=== PATIENT | female | born 1945 | race Caucasian/White ===

== ENCOUNTER → 2018-03-27 10:33 | Outpatient (CLI) | payer MEDICARE, OTHER, SELFPAY ==
--- NOTE | 2018-03-27 | DI.MG.S_ITS ---
BILATERAL DIGITAL SCREENING MAMMOGRAM 3D/2D WITH CAD: 03/27/2018 CLINICAL: Routine screening. Family history of breast cancer. Comparison is made to exams dated: 01/28/2017 mammogram, 01/02/2016 mammogram, and 01/08/2015 mammogram - [facility]. The tissue of both breasts is heterogeneously dense. This may lower the sensitivity of mammography. Current study was also evaluated with a Computer Aided Detection (CAD) system. No significant masses, calcifications, or other findings are seen in either breast. There has been no significant interval change. IMPRESSION: NEGATIVE There is no mammographic evidence of malignancy. A 1 year screening mammogram is recommended. This exam was interpreted at Station ID: [id number]. NOTE: For mammograms, a report in lay terms will be sent to the patient. Approximately 15% of breast malignancies will not be visualized mammographically. In the management of a palpable breast mass, a negative mammogram must not discourage biopsy of a clinically suspicious lesion. Electronically Signed By: Danny chung/david:03/27/2018 15:16:05 letter sent: Normal Exam ACR BI-RADS Category 1: Negative 3341F
== END ==
PROVIDERS: Visit Provider Family Medicine
DX: Z12.31 Encounter for screening mammogram for malignant neoplasm of breast (principal); Z80.3 Family history of malignant neoplasm of breast
CPT/HCPCS: 77063; 77067

== ENCOUNTER → 2019-03-28 08:00 | Outpatient (CLI) | payer MEDICARE, OTHER, SELFPAY ==
--- NOTE | 2019-03-28 | DI.MG.S_ITS ---
BILATERAL DIGITAL SCREENING MAMMOGRAM 3D/2D WITH CAD: 03/28/2019 CLINICAL: Routine screening. Family history of breast cancer. Comparison is made to exams dated: 03/27/2018 mammogram - [facility], 01/28/2017 mammogram, and 01/02/2016 mammogram - [facility]. The tissue of both breasts is heterogeneously dense. This may lower the sensitivity of mammography. Current study was also evaluated with a Computer Aided Detection (CAD) system. No significant masses, calcifications, or other findings are seen in either breast. There has been no significant interval change. IMPRESSION: NEGATIVE There is no mammographic evidence of malignancy. A 1 year screening mammogram is recommended. This exam was interpreted at Station ID: [id number]. NOTE: For mammograms, a report in lay terms will be sent to the patient. Approximately 15% of breast malignancies will not be visualized mammographically. In the management of a palpable breast mass, a negative mammogram must not discourage biopsy of a clinically suspicious lesion. Electronically Signed By: Delbert ding/david:03/28/2019 17:18:47 letter sent: Normal Exam ACR BI-RADS Category 1: Negative 3341F
== END ==
PROVIDERS: PCP Family Medicine; Visit Provider Family Medicine
DX: Z12.31 Encounter for screening mammogram for malignant neoplasm of breast (principal); Z80.3 Family history of malignant neoplasm of breast
CPT/HCPCS: 77063; 77067

== ENCOUNTER 2019-10-02 12:12 | Emergency (ER) | payer MEDICARE, OTHER, SELFPAY ==
[2019-10-02 12:28] VITALS: BP 133/79; PULSE 64; RESP 17; TEMP 36.7; O2SAT 99; BMI 29.2
--- NOTE | 2019-10-02 12:30 | DI.RAD.S_ITS ---
PROCEDURE: XR CHEST 1V INDICATIONS: chest pain TECHNIQUE: One view of the chest was acquired. COMPARISON: None. FINDINGS: Surgical changes and devices: None. Lungs and pleura: Lungs are clear. No pleural effusions or pneumothorax. Mediastinum: Mediastinal contours appear normal. Heart size is enlarged. Bones and chest wall: No suspicious bony lesions. Overlying soft tissues appear unremarkable. IMPRESSION: No acute cardiopulmonary pathology. Dictated by: Jorden Jack M.D. on 10/02/2019 at 13:42 Approved by: Jorden Jack M.D. on 10/02/2019 at 13:43
[2019-10-02 12:39] LABS: Add Manual Diff / Slide Review NO; Basophils Absolute Auto 100 /uL (0-100); Basophils Percent Auto 0.9 % (0-2); Eosinophils Absolute Auto 100 /uL (0-450); Eosinophils Percent Auto 2.2 % (2-4); Hematocrit 40.9 % (36-46); Hemoglobin 13.9 g/dL (12.0-16.0); Lymphocytes Absolute Auto 2100 /uL (1100-4500); Lymphocytes Percent Auto 34.8 % (25-40); Mean Corpuscular HGB Conc 34.1 % (30-36); Mean Corpuscular Hemoglobin 31.6 PG (26-34); Mean Corpuscular Volume 92.9 fL (80-100); Monocytes Absolute Auto 500 /uL (0-900); Monocytes Percent Auto 7.9 % (3-14); Neutrophils Absolute Auto 3300 /uL (1500-7000); Neutrophils Percent Auto 54.2 % (50-75); Platelet Count 236 X10^3/uL (150-400); Red Cell Distribution Width 13.5 % (11.6-14.8); White Blood Cell Count 6.1 X10^3/uL (4.5-11.0)
[2019-10-02 12:44] LABS: PTT Partial Thromboplastin Tim 29 SECONDS (26.4-36.2)
[2019-10-02 12:46] LABS: Alanine Aminotransferase 21 IU/L (<35); Albumin 4.6 g/dL (3.5-5.0); Albumin Globulin Ratio 1.6 (1.0-2.8); Alkaline Phosphatase 70 U/L (38-126); Aspartate Aminotransferase 25 IU/L (14-36); BUN Creatinine Ratio 25.7 (6-22); Bilirubin Total 0.5 mg/dL (0.2-1.3); Blood Urea Nitrogen 18 mg/dL (7-17); Calcium 10.7 mg/dL (8.4-10.2); Carbon Dioxide 27 mmol/L (22-32); Chloride 104 mmol/L (98-107); Creatine Kinase 80 U/L (30-135); Estimated Glomerular Filt Rate > 60.0 mL/min (>60); Globulin 2.9 g/dL (1.7-4.1); Glucose 104 mg/dL (80-110); HEMOLYSIS < 15 (0-50); Lipase 151 U/L (23-300); Potassium 4.2 mmol/L (3.4-5.1); Sodium 139 mmol/L (137-145); Total Protein 7.5 g/dL (6.3-8.2)
--- NOTE | 2019-10-02 12:47 | ED_ITS ---
HPI - Chest Pain General Chief Complaint: Chest Pain Stated Complaint: ELECTRICAL SHOCKS RT ARM Time Seen by Provider: 10/02/19 12:20 Source: patient Mode of arrival: Ambulatory Limitations: no limitations History of Present Illness HPI narrative: Patient is a 73-year-old female who presents with chest discomfort ongoing for the last year. She states that she has had constant chest heaviness for the last year and fact she has appointment with Cardiology in 1 week. She says 2 nights ago she had electrical shooting in the center of her chest that radiated down her arms it lasted for about 30 minutes she took an aspirin went back to sleep. She decided today that she should probably be checked out. She is able to work in the [employer] without any difficulty she has no shortness of breath her chest discomfort is the same as it has been for the last year. MD complaint: chest pain Duration: constant Pain location: substernal Severity: mild Quality: aching Pain radiation: none Relieving factors: nothing Exacerbating factors: nothing Related Data Allergies Allergy/AdvReac Type Severity Reaction Status Date / Time No Known Drug Allergies Allergy Verified 10/02/19 12:28 Review of Systems Review of Systems Narrative: GENERAL: Denies chills, fatigue, malaise, fever, sweats, travel HEENT: Denies sinus pain, ear pain, sore throat, difficulty swallowing, neck pa in RESPIRATORY: Denies dyspnea, cough, wheezing, hemoptysis, sputum. CARDIOVASCULAR: See HPI GASTROINTESTINAL: Denies nausea, vomiting, abdominal pain, diarrhea, constipation, melena. : Denies dysuria, frequency, incontinence, hematuria, urinary retention, flank pain. MUSCULOSKELETAL: Denies weakness, joint pain, or bony pain SKIN: No rash, no erythema, no pruritus NEUROLOGIC: Denies weakness, dizziness, headache, numbness, change in speech, confusion PSYCHIATRIC: No concerning psychosocial issues. 12 point review of systems is negative except for those stated above and HPI Patient History Medical History Parathyroid abnormality (Acute) Social History Smoking Status: Never smoker Smoking Status: Never smoker Substance Use Type: does not use Exam Initial Vital Signs Initial Vital Signs: Vital Signs Temperature 98.1 F 10/02/19 12:28 Pulse Rate 64 10/02/19 12:28 Respiratory Rate 17 10/02/19 12:28 Blood Pressure 133/79 10/02/19 12:28 Pulse Oximetry 99 10/02/19 12:28 GENERAL: Well-appearing, well-nourished and in no acute distress. HEENT: Head atraumatic,EOMI, pupils reactive, face symmetric, moist mucous membranes CARDIOVASCULAR: Regular rate and rhythm without murmurs, rubs or gallops. RESPIRATORY: Breath sounds equal bilaterally, no wheezes rales or rhonchi. ABDOMEN: Soft, nontender. Normoactive bowel sounds all 4 quadrants. No guarding or rebound. EXTREMITIES: Normal range of motion, no clubbing or edema. Neurovascularly int act NEUROLOGICAL: Alert and oriented x4.Normal gait and speech. Cranial nerves II through XII grossly intact. SKIN: Warm, dry, no laceration, no petechiae, no rashes or lesions. Scores HEART Score Heart Score history: Slightly Suspicious Heart Score EKG: Normal Heart Score Age: > or = 65 years old Heart Score risk factors: No known risk factors Heart Score troponin: < or = to normal limit Heart Score Total: 2 Course Orders Ordered: ED Orders 10/02/19 12:25 Complete Blood Count AUTO DIFF Stat Comprehensive Metabolic Panel Stat Lipase Stat Partial Thromboplastin Time Stat Prothrombin Time INR Stat Troponin & CK Cardiac Panel Stat EKG-12 Lead Routine 10/02/19 12:30 XR chest 1V Stat Vital Signs Vital signs: Vital Signs - 8 hr 10/02/19 12:28 10/02/19 13:43 Temperature 98.1 F Pulse Rate 64 61 Respiratory Rate 17 15 Blood Pressure 133/79 Blood Pressure [Left Arm] 117/70 Pulse Oximetry 99 99 MDM - Chest Pain Lab Data Attestation: I reviewed the patient's lab results. Result diagrams: 10/02/19 12:25 10/02/19 12:25 Labs: Lab Results 10/02/19 10/02/19 10/02/19 Range/Units 12:25 12:25 12:25 WBC 6.1 (4.5-11.0) X10^3/uL RBC 4.40 (4.0-5.2) X10^6/uL Hgb 13.9 (12.0-16.0) g/dL Hct 40.9 (36-46) % MCV 92.9 (80-100) fL MCH 31.6 (26-34) PG MCHC 34.1 (30-36) % RDW 13.5 (11.6-14.8) % Plt Count 236 (150-400) X10^3/uL Neut % (Auto) 54.2 (50-75) % Lymph % (Auto) 34.8 (25-40) % [place] % (Auto) 7.9 (3-14) % Eos % (Auto) 2.2 (2-4) % Baso % (Auto) 0.9 (0-2) % Neut # (Auto) 3300 (4671-4812) /uL Lymph # (Auto) 2100 (0741-6246) /uL [place] # (Auto) 500 (0-900) /uL Eos # (Auto) 100 (0-450) /uL Baso # (Auto) 100 (0-100) /uL PT 11.0 (10.1-12.7) SECONDS INR 1.0 (0.9-1.3) APTT 29 (26.4-36.2) SECONDS Sodium 139 (137-145) mmol/L Potassium 4.2 (3.4-5.1) mmol/L Chloride 104 (98-107) mmol/L Carbon Dioxide 27 (22-32) mmol/L BUN 18 H (7-17) mg/dL Creatinine 0.70 (0.52-1.04) mg/dL Estimated GFR > 60.0 (>60) mL/min BUN/Creatinine Ratio 25.7 H (6-22) Glucose 104 (80-110) mg/dL Calcium 10.7 H (8.4-10.2) mg/dL Total Bilirubin 0.5 (0.2-1.3) mg/dL AST 25 (14-36) IU/L ALT 21 (<35) IU/L Alkaline Phosphatase 70 (38-126) U/L Total Creatine Kinase 80 (30-135) U/L CK-MB (CK-2) TNP CK-MB (CK-2) Rel Index TNP Troponin I < 0.012 (0.01-0.034) ng/mL Total Protein 7.5 (6.3-8.2) g/dL Albumin 4.6 (3.5-5.0) g/dL Globulin 2.9 (1.7-4.1) g/dL Albumin/Globulin Ratio 1.6 (1.0-2.8) Lipase 151 (23-300) U/L ECG Data Attestation: I personally reviewed and interpreted this ECG as follows: Prior ECG tracings: not available for review Interpretation: Normal sinus rhythm rate 69 p.r. interval 148 his QRS 97 QTC 420 Q-wave noted in lead [address] elevation depression or T-wave inversions no priors to compare MDM Narrative Medical decision making narrative: Patient has had chest discomfort ongoing for a year she had an exacerbation 2 days ago no longer having the exacerbation. Her chest discomfort is not any worse today than it has been for the last 1 year pain Discharge Plan Departure Patient Disposition: Home Clinical Impression: Atypical chest pain Discharge Date/Time: 10/02/19 13:43 Instructions: DI for Atypical Chest Pain Activity Restrictions/Additional Instructions: *You have been diagnosed with atypical chest pain *What to do: You may require further testing such as stress test please discuss this with the cota to see them next week and her primary care provider *Continue to take medications as directed *Follow up with your primary care provider in 2-3 days *Return to ER if you should have increasing chest, shortness of breath weakness or any new, worsening or concerning symptoms Referrals: Melyssa Molina MD [Primary Care Provider] - Seven Goddard MD [Physician] -
[2019-10-02 12:57] LABS: Troponin I < 0.012 ng/mL (0.01-0.034)
[2019-10-02 13:43] VITALS: BP 117/70; PULSE 61; RESP 15; O2SAT 99
== END 2019-10-02 13:43 | disposition home or self-care (01) ==
PROVIDERS: Emergency Provider Emergency Medicine; PCP Family Medicine
DX: R07.89 Other chest pain (principal)
CPT/HCPCS: 36415; 71045; 80053; 82550; 83690; 84484; 85025; 85610; 85730; 93005; 93010; 99282; 99285

== ENCOUNTER → 2019-11-05 08:48 | Outpatient (CLI) | payer MEDICARE, OTHER, SELFPAY ==
--- NOTE | 2019-11-05 16:02 | PM.TREADMILL ---
Cardiac Stress Test Report Referral & Results Date Patient Seen: 11/05/19 Time Patient Seen: 11:30 Rest ECG: SINUS RHYTHM Procedure Note: PATIENT TOLERATED EXERCISE WELL WITHOUT ANGINAL SYMPTOMS. Impression: 1. STANDARD XUAN PROTOCOL; 8:10, 10.1 METS. 2. EXCELLENT EXERCISE CAPACITY, MONIKA -47%. 3. NORMAL HEMODYNAMIC RESPONSE TO EXERCISE . 4. NO CHEST PAIN OR ANGINAL SYMPTOMS. 5. APPROX. [address] DEPRESSION V5 AND V6. GREATER THAN 1 MM STD IN LEAD III. FREQUENT PACS AND MULTIFOCAL PVCS INCLUDING SOME COUPLETS, TIRGEMINY AND BIGEMINY. Please note: Actual ECG tracings can be found in the PACS system.
--- NOTE | 2019-11-13 14:19 | DI.NM.S_ITS ---
DATE OF SERVICE: PROCEDURE: Exercise perfusion study. INDICATION: Angina, palpitations, hypertension, hyperlipidemia. RADIOPHARMACEUTICAL: 27.1 mCi technetium-99m Myoview IV was injected at stress and 27.3 mCi technetium-99m Myoview IV was injected at rest. FINDINGS: CARDIAC STRESS: The patient underwent exercise perfusion study under the supervision of attending staff. She walked on Issac protocol for 8 minutes 10 seconds, achieved 114 percent of target heart rate, normal blood pressure response. Functional aerobic impairment minus 47 percent. The patient achieved 10.1 METS of workload. No anginal symptoms. Baseline EKG revealed sinus rhythm with nonspecific concave ST flattening and depression in the inferior and lateral leads. During stress, no convincing significant inducible ischemic changes. Intermittent PACs. In recovery, intermittent PVCs were seen, as well. No sustained ventricular tachycardia or supraventricular tachycardia. RAW DATA: Breast shadow was seen. GATED STUDY: Resting LV ejection fraction 81 and stress LV ejection fraction 86 percent. Resting end-diastolic velocity 81 mL. No transient ischemic dilatation. TID ratio 0.90, which is within normal limits. Lung-heart ratio 0.28, which is within normal limits. MYOCARDIAL PERFUSION: Stress supine and resting supine images revealed a small size, mildly decreased perfusion of apex, which got resolved during prone images, suggestive of breast tissue attenuation artifact. No convincing ischemia or infarction. CONCLUSION: 1. I would call this study a normal myocardial perfusion study with evidence of breast tissue attenuation artifact, which got resolved during prone images. 2. Good exercise tolerance. 3. Preserved LV function. 4. No anginal symptoms during exercise. 5. Intermittent PACs during stress and isolated PVCs during recovery seen. 6. No sustained ventricular tachycardia or supraventricular tachycardia. 7. Overall, this a low risk myocardial perfusion scan. Rah Ramirez - LINDA/bonita/janine doc#: [id number]/job#: [id number] dd: 11/06/2019 13:18:00 dt: 11/06/2019 13:30:00 DICTATING MD/COPIES TO: Seven Goddard MD COPIES MNE: WILLIE;
== END ==
LOC: ECHO 10:38 → NUCM 11-23 11:37
PROVIDERS: Family Provider Physician Assistant; PCP Physician Assistant; Visit Provider Internal Medicine Cardiovascular Disease
DX: I20.9 Angina pectoris, unspecified (principal); I49.3 Ventricular premature depolarization; R00.2 Palpitations
CPT/HCPCS: 78452; 93016; 93017; 93018; A9502

== ENCOUNTER → 2019-11-06 09:00 | Outpatient (CLI) | payer MEDICARE, OTHER, SELFPAY ==
--- NOTE | 2019-11-06 | DI.ECHO.S_ITS ---
[place] [facility]---------+ [facility] +---------+ : : [address] [place] : : : : [id number] : : : : Phone: [phone]+ Echocardiogram Report + + :Name: HIEU MOSLEY Study Date: 11/06/2019 Height: 61 in : :[facility] Weight: 155 lb : : Gender: Female BSA: 1.7 m2 : :: 1945 Age: 73 yrs BP: 138/76 mmHg: :Reason For Study: Angina : :Ordering Physician: Vasiliy : :Howard Doherty Performed By: Jameel Hickey : :Referring: VASILIY DOHERTY : + + Interpretation Summary The left ventricle is normal in size. The left ventricle is hyperdynamic. The ejection fraction is estimated to be 70-75%. There is no echo evidence for significant left ventricular outflow tract obstruction. The right ventricle is normal in size and function. No significant valvular pathology seen. Procedure: A two-dimensional transthoracic echocardiogram with color flow and Doppler was performed. The study quality was technically adequate. There is no prior echocardiogram noted for this patient. The patient was in normal sinus rhythm during the exam. Left Ventricle: The left ventricle is normal in size. Proximal septal thickening is noted. There is no echo evidence for significant left ventricular outflow tract obstruction. The ejection fraction is estimated to be 70-75%. The left ventricle is hyperdynamic. There are no obvious focal wall motion abnormalities noted but poor endocardial definition reduces the sensitivity for the detection of such. Diastolic parameters suggest probable normal left ventricular diastolic function and normal filling pressures. Right Ventricle: The right ventricle is normal in size and function. Atria: The left atrium is severely dilated. Right atrial size is normal. The interatrial septum is intact with no evidence for an atrial septal defect. Mitral Valve: The mitral valve leaflets are slightly calcified. The mitral valve chordae are thickened and/or calcified. There is trace mitral regurgitation. Aortic Valve: The aortic valve is trileaflet. The aortic valve opens well. There is no aortic valve stenosis. No aortic regurgitation is present. Tricuspid Valve: The tricuspid valve is normal in structure and function. There is trace tricuspid regurgitation. The right ventricular systolic pressure is estimated to be at least 31 mmHg based on an estimated right atrial pressure of 8 mm Hg. Pulmonic Valve: The pulmonic valve is normal in structure and function. There is trace pulmonic regurgitation. Great Vessels: The aortic root is normal size. The ascending aorta is at the upper limits of normal in size. The pulmonary artery is normal size. The IVC is dilated (diameter is greater than 2.1 cm) yet it collapses greater than 50% with a sniff. This suggests a right atrial pressure of 8 mm Hg. Pericardium/ Pleura There is no pericardial effusion. There is no pleural effusion. MMode/2D Measurements & Calculations LVIDd: 3.6 cm LVOT diam: 2.1 cm LVIDs: 2.4 cm Ao root diam: 3.4 cm FS: 33.2 % asc Aorta Diam: 3.7 cm IVSd: 1.5 cm LVPWd: 0.94 cm LV la. diameter/BSA (cm/m^2): 2.1 LV sys. diameter/BSA (cm/m^2): 1.4 LA A2 area: 25.0 cm2 RA long axis: 5.9 cm LA A4 area: 29.3 cm2 RA area: 15.8 cm2 LA length (vol): 6.9 cm RA vol: 36.3 ml LA vol: 90.1 ml RA : 21.4 ml/m2 LA vol index: 53.1 ml/m2 TAPSE: 3.1 cm Doppler Measurements & Calculations Ao V2 max: 122.6 cm/sec LVOT Max Dwight: 103.7 cm/sec Ao V2 mean: 89.2 cm/sec LV V1 max P.3 mmHg Ao max P.0 mmHg LV V1 VTI: 25.7 cm Ao mean P.5 mmHg JOSY(I,D): 3.4 cm2 Ao V2 VTI: 25.7 cm JOSY(V,D): 2.9 cm2 sev ratio: 1.00 JOSY indexed to BSA (cm^2/m^2): 2.0 MV E max dwight: 76.4 cm/sec TR max dwight: 238.4 cm/sec MV A max dwight: 55.3 cm/sec TR max P.7 mmHg MV E/A: 1.4 PA V2 max: 69.5 cm/sec Med Peak E' Dwight: 7.3 cm/sec PA V2 mean: 51.9 cm/sec E/E' med: 10.4 PA mean P.2 mmHg Lat Peak E' Dwight: 10.6 cm/sec PA Accel Time: 0.14 sec E/E' lat: 7.2 E/e' average: 8.8 MV dec time: 0.34 sec SV(LVOT): 87.3 ml Reading Physician:02:05 PM
== END ==
PROVIDERS: Family Provider Physician Assistant; PCP Physician Assistant; Visit Provider Internal Medicine Cardiovascular Disease
DX: I20.9 Angina pectoris, unspecified (principal)
CPT/HCPCS: 93306

== ENCOUNTER → 2020-07-02 11:16 | Outpatient (CLI) | payer MEDICARE, OTHER, SELFPAY ==
--- NOTE | 2020-07-02 11:36 | DI.MG.S_ITS ---
Patient Name: HIEU MOSLEY date: 1945 Sex: F Attending Physician: Arabella Indications: Date: 07/02/2020 11:29 At the request of: MILKA ANDERSON Procedure: MM screening mammo BI BILATERAL DIGITAL SCREENING MAMMOGRAM 3D/2D WITH CAD: 07/02/2020 CLINICAL: Routine screening. Family history of breast cancer. Comparison is made to exams dated: 03/28/2019 mammogram, 03/27/2018 mammogram - [facility], and 01/28/2017 mammogram - [facility]. The tissue of both breasts is heterogeneously dense. This may lower the sensitivity of mammography. Current study was also evaluated with a Computer Aided Detection (CAD) system. No significant masses, calcifications, or other findings are seen in either breast. There has been no significant interval change. IMPRESSION: NEGATIVE There is no mammographic evidence of malignancy. A 1 year screening mammogram is recommended. This exam was interpreted at Station ID: [id number]. NOTE: For mammograms, a report in lay terms will be sent to the patient. Approximately 15% of breast malignancies will not be visualized mammographically. In the management of a palpable breast mass, a negative mammogram must not discourage biopsy of a clinically suspicious lesion. Electronically Signed By: Kelvin Neff M.D., jr/david:07/02/2020 13:23:19 letter sent: Normal Exam ACR BI-RADS Category 1: Negative 3341F
== END ==
PROVIDERS: Family Provider Physician Assistant; PCP Physician Assistant; Referring Provider Physician Assistant; Visit Provider Physician Assistant
DX: Z12.31 Encounter for screening mammogram for malignant neoplasm of breast (principal); Z80.3 Family history of malignant neoplasm of breast
CPT/HCPCS: 77063; 77067

== ENCOUNTER → 2021-07-06 10:14 | Outpatient (CLI) | payer MEDICARE, OTHER, SELFPAY ==
--- NOTE | 2021-07-06 | DI.MG.S_ITS ---
BILATERAL DIGITAL SCREENING MAMMOGRAM 3D/2D WITH CAD: 07/06/2021 CLINICAL: Routine screening. Family history of breast cancer. Comparison is made to exams dated: 07/02/2020 mammogram, 03/28/2019 mammogram, and 03/28/2019 mammogram - [facility]. The tissue of both breasts is heterogeneously dense. This may lower the sensitivity of mammography. Current study was also evaluated with a Computer Aided Detection (CAD) system. No significant masses, calcifications, or other findings are seen in either breast. There has been no significant interval change. IMPRESSION: NEGATIVE There is no mammographic evidence of malignancy. A 1 year screening mammogram is recommended. This exam was interpreted at Station ID: [id number]. NOTE: For mammograms, a report in lay terms will be sent to the patient. Approximately 15% of breast malignancies will not be visualized mammographically. In the management of a palpable breast mass, a negative mammogram must not discourage biopsy of a clinically suspicious lesion. Electronically Signed By: Silver bird/david:07/06/2021 12:41:52 letter sent: Normal Exam ACR BI-RADS Category 1: Negative 3341F
== END ==
PROVIDERS: Family Provider Physician Assistant; PCP Internal Medicine; Referring Provider Internal Medicine; Visit Provider Internal Medicine
DX: Z12.31 Encounter for screening mammogram for malignant neoplasm of breast (principal); Z80.3 Family history of malignant neoplasm of breast
CPT/HCPCS: 77063; 77067

== ENCOUNTER 2023-06-21 13:19 | Observation (INO) | payer MEDICARE, OTHER, SELFPAY ==
[2023-06-21] VITALS (19 sets, daily range): BP systolic 123–171; BP diastolic 68–90; PULSE 57–88; RESP 14–25; TEMP 36.8–37.1; O2SAT 92–99; BMI 29.8
--- NOTE | 2023-06-21 13:36 | DI.RAD.S_ITS ---
PROCEDURE: XR CHEST 1V INDICATIONS: Chest pain TECHNIQUE: One view of the chest was acquired. COMPARISON: [facility], CR, XR CHEST 1V, 10/02/2019, 12:40. FINDINGS: Surgical changes and devices: None. Lungs and pleura: Mild interstitial prominence. No focal consolidation. Mild left hemidiaphragm elevation and left basilar atelectasis. No pleural effusions or pneumothorax. Mediastinum: Mediastinal contours appear normal. Heart size is mildly enlarged. Bones and chest wall: No suspicious bony lesions. Overlying soft tissues appear unremarkable. IMPRESSION: 1. Mild cardiomegaly. There is mild interstitial prominence but no confluent pulmonary edema. 2. Mild left hemidiaphragm elevation and left basilar atelectasis. Dictated by: Tianna Cardoso M.D. on 06/21/2023 at 15:10 Approved by: Tianna Cardoso M.D. on 06/21/2023 at 15:11
--- NOTE | 2023-06-21 14:11 | ED_ITS ---
HPI - Chest Pain General Chief Complaint: Chest Pain Stated Complaint: Sent from [facility] pain Time Seen by Provider: 06/21/23 13:36 Source: patient Mode of arrival: Ambulatory Limitations: no limitations History of Present Illness HPI narrative: 77-year-old female. Has a history of SVT and frequent PVCs. Is on flecainide. Has never had a heart attack. Had a stress test in 2019 an echocardiogram approximately 1 year later that were unremarkable. She is followed by cardiology at [facility]. She states that she woke up at about 0200 hours in the morning with substernal chest pressure. It did radiate to both sides of her chest and up into her jaw. States it lasted approximately 30 minutes and only w ent away when she fell back to sleep. She woke up this morning not having any symptoms. At the time of the symptoms she was not having palpitations or shortness of breath. No lightheadedness. She went to an outside walk-in clinic who advised she come to the emergency department for evaluation. Related Data Allergies Allergy/AdvReac Type Severity Reaction Status Date / Time No Known Drug Allergies Allergy Verified 10/02/19 12:28 Review of Systems Constitutional Constitutional: Reports system reviewed and no additional complaints, except as documented Cardiovascular Cardiovascular: Reports system reviewed and no additional complaints, except as documented Respiratory Respiratory: Reports system reviewed and no additional complaints, except as documented Gastrointestinal Gastrointestinal: Reports system reviewed and no additional complaints, except as documented Genitourinary Genitourinary: Reports system reviewed and no additional complaints, except as documented Integumentary/Breasts Skin/Breast: Reports system reviewed and no additional complaints, except as documented Neurologic Neurologic: Reports system reviewed and no additional complaints, except as documented Hematologic/Lymphatic On Anticoagulants: No Patient History Medical History (Updated 06/21/23 @ 16:44 by Mckinley Berg DO) Parathyroid abnormality Social History Smoking Status: Never smoker Smoking Status: Never smoker Substance Use Type: does not use Exam Initial Vital Signs Initial Vital Signs: Vital Signs Temperature 98.7 F 06/21/23 13:37 Pulse Rate 66 06/21/23 13:37 Respiratory Rate 20 06/21/23 13:37 Blood Pressure 152/79 H 06/21/23 13:37 Pulse Oximetry 97 06/21/23 13:37 Oxygen Delivery Method Room Air 06/21/23 13:37 Const General: cooperative, comfortable and No ill appearing HENMT Head: normal to inspection and normocephalic Resp Effort & Inspection: normal respiratory effort Auscultation: clear to auscultation bilaterally Cardio Rate: regular rate Rhythm: regular rhythm GI Inspection: normal to inspection and non-distended Skin General: no rashes or lesions noted Neuro General: patient alert, patient awake, patient oriented x3 and moves all extremities Extrem General: normal to inspection and No edema Course Orders Ordered: ED Orders 06/21/23 13:36 XR chest 1V Stat 06/21/23 13:37 EKG-12 Lead Stat 06/21/23 14:04 Complete Blood Count AUTO DIFF Stat Comprehensive Metabolic Panel Stat Lipase Stat Magnesium Stat Troponin & CK Cardiac Panel Stat 06/21/23 16:03 Troponin & CK Cardiac Panel Stat Vital Signs Vital signs: Vital Signs - 8 hr 06/21/23 13:37 06/21/23 13:51 06/21/23 14:00 Temperature 98.7 F Pulse Rate 66 61 67 Respiratory Rate 20 14 24 Blood Pressure 152/79 H Pulse Oximetry 97 99 98 Oxygen Delivery Method Room Air 06/21/23 14:08 06/21/23 14:08 06/21/23 14:30 Temperature Pulse Rate 66 Respiratory Rate 16 Blood Pressure 146/76 H 131/68 Pulse Oximetry 99 Oxygen Delivery Method 06/21/23 14:30 06/21/23 15:00 06/21/23 15:00 Temperature Pulse Rate 58 L 57 L Respiratory Rate 14 18 Blood Pressure 132/73 Pulse Oximetry 97 96 Oxygen Delivery Method 06/21/23 15:30 06/21/23 15:30 06/21/23 16:00 Temperature Pulse Rate 68 Respiratory Rate 18 Blood Pressure 127/80 135/74 Pulse Oximetry 98 Oxygen Delivery Method 06/21/23 16:00 06/21/23 16:30 06/21/23 16:30 Temperature Pulse Rate 77 77 Respiratory Rate 21 23 Blood Pressure 148/81 H Pulse Oximetry 92 97 Oxygen Delivery Method 06/21/23 16:59 06/21/23 17:00 Temperature Pulse Rate 73 Respiratory Rate 20 Blood Pressure 141/86 H Pulse Oximetry 92 Oxygen Delivery Method MDM - Chest Pain Lab Data Attestation: I reviewed the patient's lab results. 06/21/23 14:04 08/29/23 14:04 Labs: Lab Results 06/21/23 06/21/23 06/21/23 Range/Units 14:04 14:04 16:03 WBC 6.4 (4.5-11.0) X10^3/uL RBC 4.23 (4.0-5.2) X10^6/uL Hgb 13.3 (12.0-16.0) g/dL Hct 39.4 (36-46) % MCV 93.2 (80-100) fL MCH 31.5 (26-34) PG MCHC 33.8 (30-36) % RDW 14.0 (11.6-14.8) % Plt Count 223 (150-400) X10^3/uL Neut % (Auto) 59.9 (50-75) % Lymph % (Auto) 31.0 (25-40) % [place] % (Auto) 6.8 (3-14) % Eos % (Auto) 1.7 L (2-4) % Baso % (Auto) 0.6 (0-2) % Neut # (Auto) 3900 (2163-6926) /uL Lymph # (Auto) 2000 (2224-0871) /uL [place] # (Auto) 400 (0-900) /uL Eos # (Auto) 100 (0-450) /uL Baso # (Auto) 0 (0-100) /uL Sodium 138 (137-145) mmol/L Potassium 4.1 (3.4-5.1) mmol/L Chloride 108 H (98-107) mmol/L Carbon Dioxide 26 (22-32) mmol/L BUN 16 (7-17) mg/dL Creatinine 0.80 (0.52-1.04) mg/dL Estimated GFR > 60 (>60) mL/min BUN/Creatinine Ratio 20.0 (6-22) Glucose 98 (80-110) mg/dL Calcium 10.2 (8.4-10.2) mg/dL Magnesium 2.3 (1.6-2.3) mg/dL Total Bilirubin 0.6 (0.2-1.3) mg/dL AST 24 (14-36) IU/L ALT 23 (<35) IU/L Alkaline Phosphatase 67 (38-126) U/L Total Creatine Kinase 97 92 (30-135) U/L Troponin I < 0.012 < 0.012 (0.01-0.034) ng/mL Total Protein 7.0 (6.3-8.2) g/dL Albumin 4.2 (3.5-5.0) g/dL Globulin 2.8 (1.7-4.1) g/dL Albumin/Globulin Ratio 1.5 (1.0-2.8) Lipase 125 (23-300) U/L Imaging Data Chest x-ray: Radiologist's Impression: PROCEDURE:? XR CHEST 1V ? INDICATIONS:? Chest pain ? TECHNIQUE:? One view of the chest was acquired.? ? COMPARISON:? [facility], CR, XR CHEST 1V, 10/02/2019, 12:40. ? FINDINGS:? ? Surgical changes and devices:? None.? ? Lungs and pleura:? Mild interstitial prominence.? No focal consolidation.? Mild left hemidiaphragm elevation and left basilar atelectasis.? No pleural effusions or pneumothorax.? ? Mediastinum:? Mediastinal contours appear normal.? Heart size is mildly enlarged.? ? Bones and chest wall:? No suspicious bony lesions.? Overlying soft tissues appear unremarkable.? ? IMPRESSION:? ? 1. Mild cardiomegaly.? There is mild interstitial prominence but no confluent pulmonary edema. ? 2. Mild left hemidiaphragm elevation and left basilar atelectasis. ECG Data Attestation: I personally reviewed and interpreted this ECG as follows: Interpretation: Sinus bradycardia Ventricular rate of 50 Frequent PVCs Normal QRS Normal QTC No ST T wave changes MDM Narrative Medical decision making narrative: Patient is asymptomatic. Troponins negative x2. Has not had symptoms till she fell asleep a little after 0200 hours this morning. Her last workup was several years ago. The provider at the walk-in clinic who sent her here talked with her Cardiology group who recommended she be admitted for further risk stratification testing. I did discuss the case with Dr. Palomino who is the hospitalist on-call who will admit for further evaluation and treatment. Discussed the need for admission with the patient. She expressed understanding and agreement as well. Discharge Plan Departure Patient Disposition: Admitted as Observation Clinical Impression: Chest pain Admit Date/Time: 06/21/23 17:10 Admit Provider: Dustin Palomino
[2023-06-21 14:15] LABS: Add Manual Diff / Slide Review NO; Basophils Absolute Auto 0 /uL (0-100); Basophils Percent Auto 0.6 % (0-2); Eosinophils Absolute Auto 100 /uL (0-450); Eosinophils Percent Auto 1.7 % (2-4); Hematocrit 39.4 % (36-46); Hemoglobin 13.3 g/dL (12.0-16.0); Lymphocytes Absolute Auto 2000 /uL (1100-4500); Mean Corpuscular HGB Conc 33.8 % (30-36); Mean Corpuscular Hemoglobin 31.5 PG (26-34); Mean Corpuscular Volume 93.2 fL (80-100); Monocytes Absolute Auto 400 /uL (0-900); Monocytes Percent Auto 6.8 % (3-14); Neutrophils Absolute Auto 3900 /uL (1500-7000); Neutrophils Percent Auto 59.9 % (50-75); Platelet Count 223 X10^3/uL (150-400); Red Blood Cell Count 4.23 X10^6/uL (4.0-5.2); White Blood Cell Count 6.4 X10^3/uL (4.5-11.0)
[2023-06-21 14:32] LABS: Alanine Aminotransferase 23 IU/L (<35); Albumin 4.2 g/dL (3.5-5.0); Albumin Globulin Ratio 1.5 (1.0-2.8); Alkaline Phosphatase 67 U/L (38-126); Aspartate Aminotransferase 24 IU/L (14-36); Bilirubin Total 0.6 mg/dL (0.2-1.3); Blood Urea Nitrogen 16 mg/dL (7-17); Calcium 10.2 mg/dL (8.4-10.2); Carbon Dioxide 26 mmol/L (22-32); Chloride 108 mmol/L (98-107); Creatine Kinase 97 U/L (30-135); Estimated Glomerular Filt Rate > 60 mL/min (>60); Globulin 2.8 g/dL (1.7-4.1); Glucose 98 mg/dL (80-110); HEMOLYSIS < 15 (0-50); Lipase 125 U/L (23-300); Magnesium 2.3 mg/dL (1.6-2.3); Potassium 4.1 mmol/L (3.4-5.1); Sodium 138 mmol/L (137-145)
[2023-06-21 14:43] LABS: Troponin I < 0.012 ng/mL (0.01-0.034)
[2023-06-21 16:26] LABS: Creatine Kinase 92 U/L (30-135)
[2023-06-21 16:39] LABS: Troponin I < 0.012 ng/mL (0.01-0.034)
--- NOTE | 2023-06-21 17:18 | DI.NM.S_ITS ---
PROCEDURE: NM GELY PERF SPECT REST & STR Rest and exercise myocardial perfusion SPECT with gated imaging and ejection fraction RADIOPHARMACEUTICAL: 10.5 mCi Tc-99m sestamibi IV at rest and 27.5 mCi Tc-99m sestamibi IV at peak exercise. A [id number] was performed. INDICATIONS: Chest pain TECHNIQUE: Radiopharmaceutical was injected at peak stress test, and also at rest. SPECT images were obtained. SPECT myocardial perfusion images were displayed in short axis, horizontal long axis, and vertical long axis views. Gated images were reviewed using [employer] software. COMPARISON: None. CARDIAC STRESS: A standard Issac treadmill exercise tolerance test was performed by the patient under the supervision of an attending staff. The patient exercised for 9 minutes and 01 seconds; 10.1 METS; functional aerobic impairment (MONIKA) is -73%. Hemodynamic data: There is normal blood pressure and heart rate response to exercise stress. Patient achieved 117 of maximum predicted heart rate at peak exercise. Symptoms: Patient denied chest pain during exercise. EKG: Rest ECG sinus rhythm, ST segment depression and T wave inversions leads III and aVF. Exercise ECG sinus tachycardia, worsening of the baseline ST segment depressions in lead III. No ectopy. FINDINGS: Raw data: There is good myocardial labeling by radiotracer. No significant motion artifacts. Gjmu-pd-vyvmb ratio is 0.45 (normal is less than 0.38 for sestamibi tracer, and less than 0.50 for thallium tracer). Left ventricle function: Gated images demonstrate normal left ventricle wall thickening. No segmental wall motion abnormality. No transient ischemic dilation; TID is 0.79 (normal less than 1.3). Left ventricle stress ejection fraction is > 75%; normal values are above 45%. Myocardial perfusion: There is normal distribution of activity in the left and right ventricular myocardium. No fixed or reversible perfusion defects. IMPRESSION: Low risk study. No evidence of exercise-induced ischemia or scar on SPECT imaging Hyperdynamic function. Baseline inferior ST segment abnormality that is exacerbated and exercise is not diagnostic for ischemia. Normal hemodynamic response. Excellent exercise capacity. Dictated by: Holly Jeff D.O. on 06/22/2023 at 17:17 Approved by: Holly Jeff D.O. on 06/22/2023 at 17:21
--- NOTE | 2023-06-21 17:19 | DI.ECHO.S_ITS ---
[facility]---------+ [facility] +---------+ : : [address] : : : : [id number] : : : : Phone: [phone] Echocardiogram Report + + :Name: HIEU MOSLEY Study Date: 06/22/2023 Height: 61 in : :[facility] ReadingLocation: Weight: 158 lb : : Gender: Female BSA: 1.7 m2 : :: 1945 Age: 77 yrs BP: 112/69 mmHg: :Reason For Study: CHEST PAIN : :Ordering Physician: GABRIEL, : :KRISTYN Ambriz Performed By: Lilibeth Barbosa : :Referring: KRISTYN RIOS : + + Interpretation Summary 1) Normal left ventricular thickness, size, wall motion, and systolic function (EF 60-65%). 2) Normal right ventricular size and function. 3) The left atrium is severely dilated. 4) There is mild mitral regurgitation. 5) Compared to the Echo done 11/06/2019, no significant change. Procedure: A two-dimensional transthoracic echocardiogram with color flow and Doppler was performed. The study quality was technically adequate. Comparison is made with the echocardiogram of 11/06/2019. The patient had occasional PVCs during the exam. The patient was in sinus rhythm with heart rates between 53-81 bpm during the exam. Left Ventricle: Proximal septal thickening is noted. The left ventricle is normal in size and wall thickness. The ejection fraction is estimated to be 60-65%. Left ventricular systolic function appears normal without focal wall motion abnormalities. Diastolic parameters suggest a relaxation abnormality of the left ventricle, consistent with probable normal filling pressures. Right Ventricle: The right ventricle is normal in size and function. Atria: The left atrium is severely dilated. The right atrium is borderline dilated. There is no Doppler evidence for an interatrial shunt. Mitral Valve: The mitral valve leaflets appear mildly thickened, but open well. There is mild mitral regurgitation. Aortic Valve: The aortic valve is trileaflet. There is no aortic valve stenosis. No aortic regurgitation is present. Tricuspid Valve: The tricuspid valve is normal in structure and function. There is mild tricuspid regurgitation. The right ventricular systolic pressure is estimated to be at least 30 mmHg based on an estimated right atrial pressure of 3 mm Hg. Pulmonic Valve: The pulmonic valve leaflets are thin and pliable; valve motion is normal. There is trace pulmonic regurgitation. Great Vessels: The aortic root is normal size. The dimensions of the ascending aorta are normal. The IVC is of normal diameter and collapses greater than 50% with a sniff. This suggests a low right atrial pressure of 3 mm Hg. Pericardium/ Pleura There is no pericardial effusion. There is no pleural effusion. MMode/2D Measurements & Calculations LVIDd: 4.7 cm LVOT diam: 2.0 cm LVIDs: 3.0 cm Ao root diam: 3.2 cm FS: 35.6 % asc Aorta Diam: 3.3 cm EPSS: 0.55 cm IVSd: 0.77 cm LVPWd: 0.77 cm LV la. diameter/BSA (cm/m^2): 2.8 LV sys. diameter/BSA (cm/m^2): 1.8 LA A2 area: 33.2 cm2 RA long axis: 5.8 cm LA A4 area: 27.6 cm2 RA area: 19.4 cm2 LA length (vol): 6.5 cm RA vol: 54.6 ml LA vol: 118.8 ml RA : 32.0 ml/m2 LA vol index: 69.5 ml/m2 IVC diam: 1.2 cm RVD1 (basal): 3.6 cm RVD2 (mid): 2.8 cm TAPSE: 1.9 cm Doppler Measurements & Calculations Ao V2 max: 118.1 cm/sec LVOT Max Dwight: 100.3 cm/sec Ao V2 mean: 90.1 cm/sec LV V1 max P.0 mmHg Ao max P.6 mmHg LV V1 VTI: 21.8 cm Ao mean P.4 mmHg JOSY(I,D): 2.3 cm2 Ao V2 VTI: 28.7 cm JOSY(V,D): 2.6 cm2 sev ratio: 0.76 JOSY indexed to BSA (cm^2/m^2): 1.4 MV E max dwight: 76.7 cm/sec TR max dwight: 261.9 cm/sec MV A max dwight: 37.5 cm/sec TR max P.4 mmHg MV E/A: 2.0 PA V2 max: 69.3 cm/sec Med Peak E' Dwight: 7.8 cm/sec PA V2 mean: 52.0 cm/sec E/E' med: 9.8 PA mean P.2 mmHg Lat Peak E' Dwight: 10.5 cm/sec PA pr(Accel): 39.6 mmHg E/E' lat: 7.3 E/e' average: 8.6 MV dec time: 0.30 sec SV(LVOT): 67.2 ml Reading Physician:09:24 AM
--- NOTE | 2023-06-21 17:21 | P.HP_ITS ---
History of Present Illness History of Present Illness Date Patient Seen: 06/21/23 Time Patient Seen: 19:00 Chief complaint: Sent from Vladislav, Chest pain Narrative: Rah Ramirez is a 77-year-old female with SVT on flecainide who presents with substernal chest pain. Patient states she was awakened from sleep at 0300 with sharp chest pressure right in the middle of her chest. Pain lasted for 30 minutes then subsided. She also thinks she felt some fluttering in her chest. Patient follows with cardiology who has wanted her to get a stress test outpatient recently. Patient reports she has also had recent dizziness and loss of balance. Has not had this worked up with her PCP yet. She denies dyspnea, diaphroesis, NV, abd pain or diarrhea. [facility] Medical History (Updated 06/21/23 @ 16:44 by Mckinley Berg DO) Parathyroid abnormality Social History household members: none Smoking Status: Never smoker alcohol intake: current Meds Home Medications and Allergies Home Medications Medication Instructions Recorded Confirmed Type Adult Low Dose Aspirin 81 mg PO DAILY 06/21/23 06/21/23 History atorvastatin 40 mg tablet 20 mg PO DAILY 06/21/23 06/21/23 History cholecalciferol (vitamin D3) 4,000 units PO DAILY 06/21/23 06/21/23 History diltiazem HCl 120 mg 120 mg PO DAILY 06/21/23 06/21/23 History capsule,extended release 24 hr, controlled (DILT-XR) flecainide 50 mg tablet 25 mg PO BID 06/21/23 06/21/23 History levothyroxine 75 mcg tablet 75 mcg PO DAILY 06/21/23 06/21/23 History liothyronine 5 mcg tablet 10 mcg PO DAILY 06/21/23 06/21/23 History losartan 25 mg tablet 25 mg PO ONCE PM 06/21/23 06/21/23 History losartan 50 mg tablet 50 mg PO QAM 06/21/23 06/21/23 History Allergies Allergy/AdvReac Type Severity Reaction Status Date / Time No Known Drug Allergies Allergy Verified 10/02/19 12:28 Review of Systems Review of Systems Narrative: All other systems reviewed with the patient and are negative unless otherwise stated. Exam Vital Signs (past 8 hours): - 06/21/23 13:37 06/21/23 13:51 06/21/23 14:00 Temperature 98.7 F Pulse Rate 66 61 67 Respiratory Rate 20 14 24 Blood Pressure 152/79 H Pulse Oximetry 97 99 98 Oxygen Delivery Method Room Air 06/21/23 14:08 06/21/23 14:08 06/21/23 14:30 Temperature Pulse Rate 66 Respiratory Rate 16 Blood Pressure 146/76 H 131/68 Pulse Oximetry 99 Oxygen Delivery Method 06/21/23 14:30 06/21/23 15:00 06/21/23 15:00 Temperature Pulse Rate 58 L 57 L Respiratory Rate 14 18 Blood Pressure 132/73 Pulse Oximetry 97 96 Oxygen Delivery Method 06/21/23 15:30 06/21/23 15:30 06/21/23 16:00 Temperature Pulse Rate 68 Respiratory Rate 18 Blood Pressure 127/80 135/74 Pulse Oximetry 98 Oxygen Delivery Method 06/21/23 16:00 06/21/23 16:30 06/21/23 16:30 Temperature Pulse Rate 77 77 Respiratory Rate 21 23 Blood Pressure 148/81 H Pulse Oximetry 92 97 Oxygen Delivery Method 06/21/23 16:59 06/21/23 17:00 Temperature Pulse Rate 73 Respiratory Rate 20 Blood Pressure 141/86 H Pulse Oximetry 92 Oxygen Delivery Method Oxygen Delivery Method Room Air Narrative Exam Narrative: GEN: no acute distress HEENT: moist mucous membranes, PERRL NECK: trachea midline, no JVD CV: regular rate and rhythm, no murmurs PULM: clear bilaterally ABD: soft, nontender, nondistended, no organomegaly EXT: warm and well perfused with no edema NEURO: awake, alert, oriented, no focal deficits Objective Labs 06/22/23 05:54 06/22/23 05:54 Labs: Laboratory Results - last 24 hr 06/21/23 06/21/23 06/21/23 14:04 14:04 16:03 WBC 6.4 RBC 4.23 Hgb 13.3 Hct 39.4 MCV 93.2 MCH 31.5 MCHC 33.8 RDW 14.0 Plt Count 223 Neut % (Auto) 59.9 Lymph % (Auto) 31.0 [place] % (Auto) 6.8 Eos % (Auto) 1.7 L Baso % (Auto) 0.6 Neut # (Auto) 3900 Lymph # (Auto) 2000 [place] # (Auto) 400 Eos # (Auto) 100 Baso # (Auto) 0 Sodium 138 Potassium 4.1 Chloride 108 H Carbon Dioxide 26 BUN 16 Creatinine 0.80 Estimated GFR > 60 BUN/Creatinine Ratio 20.0 Glucose 98 Calcium 10.2 Magnesium 2.3 Total Bilirubin 0.6 AST 24 ALT 23 Alkaline Phosphatase 67 Total Creatine Kinase 97 92 Troponin I < 0.012 < 0.012 Total Protein 7.0 Albumin 4.2 Globulin 2.8 Albumin/Globulin Ratio 1.5 Lipase 125 Assessment & Plan Assessment & Plan narrative: # chest pain -patient was needing outpatient stress test per outpatient records, awoke from sleep with chest pressure -tropes negative x2, recheck in a.m. -exercise nuclear stress ordered -echo ordered -tele -start aspirin daily -check A1c and lipid panel # history of SVT -continue home flecainide, diltiazem # hypertension -continue losartan # hypothyroidism -continue synthroid -TSH normal # HLD -continue statin Code status is full code. DVT prophylaxis with Lovenox. Proxy is friend Umm. I have reviewed home meds and used all available resources to reconcile the home meds. Case discussed with ED physician/APC and patient will be admitted to the hospitalist service for further workup and management. This patient will be admitted as observation and will require less than 2 midnights of hospital time to treat chest pain.
[2023-06-21] MEDS: ASPIRIN EC 325 MG TABLET PO (17:44)
[2023-06-21] MEDS: ENOXAPARIN 40 MG/0.4 ML SYRINGE SUBCUT (17:45)
--- NOTE | 2023-06-21 17:59 | PC.NURSE ---
Pt provided with meal. Ambulated to bathroom with steady gait. Denies pain, CP, SOB, or any other concerning symptoms.
[2023-06-21 22:13] LABS: Cholesterol 194 mg/dL (140-199); HDL Cholesterol 59 mg/dL (40-60); LDL Cholesterol Calculated 108 mg/dL (<100); Triglycerides 133 mg/dL (35-150)
[2023-06-21 22:41] LABS: Hemoglobin A1C% w Est Avg Glu 5.6 % (4.0-6.0)
[2023-06-21 22:44] LABS: TSH w/ Reflex to FT4 0.68 uIU/mL (0.47-4.68)
[2023-06-21] MEDS: LOSARTAN 25 MG TABLET PO (23:36)
[2023-06-21] MEDS: FLECAINIDE 100 MG TABLET 25 MG PO (23:36)
[2023-06-22 00:46] VITALS: BP 102/60; PULSE 58; RESP 18; TEMP 36.9; O2SAT 96
[2023-06-22 04:53] VITALS: BP 112/69; PULSE 62; RESP 18; TEMP 37.1; O2SAT 100
[2023-06-22 06:37] LABS: Add Manual Diff / Slide Review NO; Basophils Absolute Auto 0 /uL (0-100); Basophils Percent Auto 0.8 % (0-2); Eosinophils Absolute Auto 200 /uL (0-450); Eosinophils Percent Auto 3.5 % (2-4); Hematocrit 39.2 % (36-46); Hemoglobin 13.2 g/dL (12.0-16.0); Lymphocytes Absolute Auto 2300 /uL (1100-4500); Lymphocytes Percent Auto 40.9 % (25-40); Mean Corpuscular HGB Conc 33.7 % (30-36); Mean Corpuscular Hemoglobin 31.7 PG (26-34); Mean Corpuscular Volume 94.1 fL (80-100); Monocytes Absolute Auto 400 /uL (0-900); Monocytes Percent Auto 7.2 % (3-14); Neutrophils Absolute Auto 2600 /uL (1500-7000); Neutrophils Percent Auto 47.6 % (50-75); Platelet Count 200 X10^3/uL (150-400); Red Blood Cell Count 4.17 X10^6/uL (4.0-5.2); Red Cell Distribution Width 13.9 % (11.6-14.8); White Blood Cell Count 5.5 X10^3/uL (4.5-11.0)
[2023-06-22 06:47] LABS: BUN Creatinine Ratio 30.6 (6-22); Blood Urea Nitrogen 19 mg/dL (7-17); Calcium 10.1 mg/dL (8.4-10.2); Carbon Dioxide 25 mmol/L (22-32); Chloride 109 mmol/L (98-107); Estimated Glomerular Filt Rate > 60 mL/min (>60); Glucose 87 mg/dL (80-110); HEMOLYSIS 16 (0-50); Potassium 4.5 mmol/L (3.4-5.1); Sodium 137 mmol/L (137-145)
[2023-06-22 06:57] LABS: Troponin I < 0.012 ng/mL (0.01-0.034)
[2023-06-22 08:00] VITALS: BP 124/77; PULSE 62; RESP 18; TEMP 36.6; O2SAT 96
[2023-06-22] MEDS: LIOTHYRONINE 5 MCG TABLET 10 MCG PO (09:21)
[2023-06-22] MEDS: ASPIRIN EC 81 MG TABLET PO (09:22)
[2023-06-22] MEDS: ENOXAPARIN 40 MG/0.4 ML SYRINGE SUBCUT (09:23)
[2023-06-22] MEDS: LEVOTHYROXINE 75 MCG TABLET PO (09:30)
[2023-06-22] MEDS: FLECAINIDE 100 MG TABLET 25 MG PO (09:30)
[2023-06-22 09:35] VITALS: BP 124/77; PULSE 68
[2023-06-22] MEDS: LOSARTAN 50 MG TABLET PO (09:35)
[2023-06-22 13:15] VITALS: BP 124/81; PULSE 83; RESP 16; TEMP 36.9; O2SAT 98
[2023-06-22] MEDS: dilTIAZem CD 120 MG CAP PO (13:29)
--- NOTE | 2023-06-22 16:33 | CM.DANOTE ---
Brief DCP Assessment Note: Patient is a 77yo F here following some chest pain. [facility] reviewed EMR. Per provider, they were attempting to schedule a stress test today however there were issues with staffing. Provider reports home after stress test with no needs from CM team. Per nursing staff, likely no needs from CM team. Per chart, patient lives alone in [place] and is independent at baseline. 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 Plan: Patient will d/c home when medically stable. CM team will continue to follow as needed. GUS Hutson Discharge Planning/Care Management CM Discharge Assessment Start: 06/22/23 16:29 Freq: Status: Active Protocol: Document 06/22/23 16:31 SL (Rec: 06/22/23 16:33 [id number]) Discharge Planning Assessment Assigned Golf Player Assistant GUS Pat Advance Directives? No History Provided By Medical Record Prior Living Arrangements House Comment 2 story Household Members none Type of transporation used prior to Drives own vehicle admit Independent with ADL's Yes Is patient alert and oriented? Yes Barriers to Discharge Yes Comment per provider, there appears to be issues scheduling patient' s stress test today due to staffing Discharge Plan Home Whiteboard Updated in Patient Room with No name and ext. # of Golf Player Assistant Review Status In Process Next Review Type Continued Stay Review
--- NOTE | 2023-06-22 16:59 | P.DS_ITS ---
History of Present Illness History of Present Illness Date Patient Seen: 06/21/23 Time Patient Seen: 19:00 Chief complaint: Sent from [place], Chest pain Narrative: Rah Ramirez is a 77-year-old female with SVT on flecainide who presents with substernal chest pain. Patient states she was awakened from sleep at 0300 with sharp chest pressure right in the middle of her chest. Pain lasted for 30 minutes then subsided. She also thinks she felt some fluttering in her chest. Patient follows with cardiology who has wanted her to get a stress test outpatient recently. Patient reports she has also had recent dizziness and loss of balance. Has not had this worked up with her PCP yet. She denies dyspnea, diaphroesis, NV, abd pain or diarrhea. Discharge Providers Provider Date of admission: 06/21/23 17:10 Discharge Date: 06/22/23 Primary care physician: Flaco Juárez MD Discharge provider: Dustin Palomino DO Summary Hospital Course Discharge Diagnosis: # chest pain -patient was needing outpatient stress test per outpatient records, awoke from sleep with chest pressure -tropes negative x3 -exercise nuclear stress ordered and was negative for ischemia -echo ordered and was unchanged from prior, EF 60-65% with severely dilated LA and mild MR -tele showed no arrythmias -continue aspirin daily -A1c 5.5%, LDL 108 # history of SVT -continue home flecainide, diltiazem # hypertension -continue losartan # hypothyroidism -continue synthroid -TSH normal # HLD -increased statin to 40mg nightly from 20 due to LDL of 108 Hospital Course: Admitted for chest pain and had full cardiac workup as above and all was negative. Will f/u with cardiology for a heart monitor and further management of SVT. Exam Vital Signs (past 8 hours): - 06/22/23 09:35 06/22/23 13:15 Temperature 98.5 F Pulse Rate 68 83 Respiratory Rate 16 Blood Pressure 124/77 124/81 Pulse Oximetry 98 Oxygen Flow Rate 0 Oxygen Delivery Method Room Air Oxygen Flow Rate 0 Narrative Exam Narrative: GEN: no acute distress HEENT: moist mucous membranes, PERRL NECK: trachea midline, no JVD CV: regular rate and rhythm, no murmurs PULM: clear bilaterally ABD: soft, nontender, nondistended, no organomegaly EXT: warm and well perfused with no edema NEURO: awake, alert, oriented, no focal deficits Objective Labs 06/22/23 05:54 06/22/23 05:54 Labs: Laboratory Results - last 24 hr 06/21/23 06/21/23 06/21/23 14:04 14:04 14:04 WBC RBC Hgb Hct MCV MCH MCHC RDW Plt Count Neut % (Auto) Lymph % (Auto) [place] % (Auto) Eos % (Auto) Baso % (Auto) Neut # (Auto) Lymph # (Auto) [place] # (Auto) Eos # (Auto) Baso # (Auto) Sodium Potassium Chloride Carbon Dioxide BUN Creatinine Estimated GFR BUN/Creatinine Ratio Glucose Hemoglobin A1c 5.6 Calcium Troponin I Triglycerides 133 Cholesterol 194 LDL Cholesterol, Calc 108 H HDL Cholesterol 59 TSH 0.68 06/22/23 06/22/23 06/22/23 05:54 05:54 05:54 WBC 5.5 RBC 4.17 Hgb 13.2 Hct 39.2 MCV 94.1 MCH 31.7 MCHC 33.7 RDW 13.9 Plt Count 200 Neut % (Auto) 47.6 L Lymph % (Auto) 40.9 H [place] % (Auto) 7.2 Eos % (Auto) 3.5 Baso % (Auto) 0.8 Neut # (Auto) 2600 Lymph # (Auto) 2300 [place] # (Auto) 400 Eos # (Auto) 200 Baso # (Auto) 0 Sodium 137 Potassium 4.5 Chloride 109 H Carbon Dioxide 25 BUN 19 H Creatinine 0.62 Estimated GFR > 60 BUN/Creatinine Ratio 30.6 H Glucose 87 Hemoglobin A1c Calcium 10.1 Troponin I < 0.012 Triglycerides Cholesterol LDL Cholesterol, Calc HDL Cholesterol TSH [facility] Medical History (Updated 06/21/23 @ 16:44 by Mckinley Berg DO) Parathyroid abnormality Social History household members: none Smoking Status: Never smoker alcohol intake: current Discharge Plan Discharge Plan Patient Disposition: Home Provider Discharge Comment: All of your heart workup was negative. Your chest pain may have been from SVT which you've had previously, so I would look into having cardiology place a heart monitor. I've sent all of your records to Dr. Juárez. Discharge orders & Medications Prescriptions: Continued losartan 25 mg tablet 25 mg PO ONCE PM losartan 50 mg tablet 50 mg PO QAM diltiazem HCl [DILT-XR] 120 mg capsule,ext.rel 24h degradable 120 mg PO DAILY liothyronine 5 mcg tablet 10 mcg PO DAILY levothyroxine 75 mcg tablet 75 mcg PO DAILY flecainide 50 mg tablet 25 mg PO BID Adult Low Dose Aspirin 81 mg PO DAILY cholecalciferol (vitamin D3) 4,000 units capsule 4,000 units PO DAILY Changed atorvastatin 40 mg tablet 40 mg PO BEDTIME Qty: 30 0RF Follow up/Referrals: Flaco Juárez MD [Primary Care Provider] - 2 Weeks Visit Report/Discharge Packet Stand Alone Forms: Patient Portal/API, Stroke Signs & Symptoms Discharge Data Primary Care Provider: Flaco Juárez Attending Provider: Dustin Palomino Admit Date/Time: 06/21/23 17:10
--- NOTE | 2023-06-22 17:41 | PC.NURSE ---
Addendum entered by Natacha Johnson R.N. 06/22/23 17:53: Pt escorted with RN to private vehicle with her friend for discharge home with all of her personal belongings. Original Note: Pt is A&OX4, VSS, afebrile on RA. She is SR with BBB, and some PVC's. She denies feeling CP, SOB, DOBBS, dizziness. She is independent in her room and ambulatory around the unit. Stress test is completed today and she is cleared for discharge this evening at approximately 1715. She verbalizes understanding of medication changes as well as follow up recommendations with her PCP in x 2 weeks.
== END 2023-06-22 17:50 | disposition home or self-care (01) ==
LOC: ED 16:44 → AC 17:11
PROVIDERS: Admitting Provider Student in an Organized Health Care Education/Training Program; Emergency Provider Emergency Medicine; Family Provider Physician Assistant; PCP Internal Medicine; Referring Provider Emergency Medicine; Visit Provider Student in an Organized Health Care Education/Training Program
DX: R07.9 Chest pain, unspecified (principal); I10 Essential (primary) hypertension; E03.9 Hypothyroidism, unspecified; E78.5 Hyperlipidemia, unspecified; Z86.79 Personal history of other diseases of the circulatory system
CPT/HCPCS: 36415; 71045; 78452; 80048; 80053; 80061; 82550; 83036; 83690; 83735; 84443; 84484; 85025; 93005; 93017; 93306; 94660; 96372; 99284; G0378; A9502; J1650